=== PATIENT | male | born 1995 | race Hispanic/Latino ===

== ENCOUNTER 2022-08-20 21:47 | Emergency (ER) | payer SELFPAY ==
[2022-08-20 21:48] VITALS: BP 142/92; PULSE 112; RESP 19; TEMP 36.4; O2SAT 99; BMI 35.6
--- NOTE | 2022-08-20 22:38 | EKG12_ITS ---
Test Reason : DYSRHYTHMIA Blood Pressure : / mmHG Vent. Rate : 099 BPM Atrial Rate : 099 BPM P-R Int : 174 ms QRS Dur : 110 ms QT Int : 346 ms P-R-T Axes : 041 050 012 degrees QTc Int : 444 ms Normal sinus rhythm Nonspecific T wave abnormality Abnormal ECG Confirmed by BRUNO OSMAN, GREY ([id number]), research editor RADHA AYERS ([id number]) on 08/21/2022 10:06:39 AM Referred By: HANSEL Confirmed By:GREY CARR MD
--- NOTE | 2022-08-20 22:44 | EX.ED.DYSGE1 ---
HPI History of Present Illness Chief Complaint: Anxiety Informant: patient and friend Narrative Narrative: Patient is a 26-year-old male with no reported significant past medical history. He states he was at work and roughly 1 hour prior to arrival began feeling his heart was beating quickly and skipping beat. He states that his mother has a history of atrial fibrillation which required a pacemaker to be him concerned that he could be in A-fib or having a heart attack. Secondary to this he presents for evaluation. Patient states that associated with the palpitations there was no chest pain diaphoresis nausea vomiting or shortness of breath. He denies any recent travel surgery or history of DVT/PE. He denies any illicit drug use or excessive stimulant use. Patient states symptoms lasted for approximate 1 hour and have since resolved. PFSH PFSH Medical History no medical history no medical history Home Medications NK 08/20/22 [History Last Taken Unknown] Allergy/AdvReac Type Severity Reaction Status Date / Time No Known Allergies Allergy Verified 08/20/22 21:48 Social History Smoking Status: Never smoker ROS [facility] ED Constitutional Constitutional ED: Denies chills or fever(s) ENT ENT ED: Denies sore throat Cardiovascular Cardiovascular: Reports palpitations and racing heartbeat; Denies chest pain Respiratory/Chest Respiratory/Chest: Denies cough or dyspnea Gastrointestinal Gastrointestinal: Denies abdominal pain, diarrhea, nausea or vomiting Genitourinary Genitourinary ED: Denies dysuria Musculoskeletal Musculoskeletal: Denies myalgias Integumentary Denies rash Neurologic Neurologic: Denies headache(s) Hematologic/Lymphatic Hematologic/Lymphatic: Denies easy bleeding or easy bruising EXAM Physical Exam Const Vital Signs: 08/20/22 21:48 08/20/22 22:56 08/21/22 00:07 Temperature 97.6 F L Temperature Source Temporal Pulse Rate 112 H 95 78 Respiratory Rate 19 H 14 16 Blood Pressure 142/92 H 132/88 H Blood Pressure Mean 108 Pulse Ox 99 99 97 Oxygen Delivery Method Room Air Positive well nourished and well developed General Appearance ED: well developed HEENT HEENT Narrative: Normocephalic atraumatic Eyes PERRL and EOMs intact bilaterally General Eye ED: Negative for pale conjunctiva Neck supple and no JVD Resp normal respiratory effort and clear to auscultation bilaterally Cardio regular rate and regular rhythm Rate: other Other Details: Radial pulses are plus 2 out of 4 bilaterally are equal and symmetric GI normal to inspection, nondistended, normoactive bowel sounds, non-tender, non-distended and no masses Auscultation: normoactive bowel sounds Palpation: soft Extremity normal to inspection Extremity Narrative: No asymmetric edema no pitting edema negative Homans' sign bilaterally Neuro oriented x3, CN's II-XII intact bilaterally and no sensory deficits noted Sensorium / Orientation: alert Motor Exam: strength 5/5 throughout Psych mental status grossly normal Skin no rashes or lesions noted MDM MDM MDM Narrative Medical decision making narrative: Patient presented to the ER hypertensive and mildly tachycardic but did appear anxious in nature. He is low risk for cardiovascular disease but as he reported palpitations and mother does have a history of A-fib requiring pacemaker I did elect to perform a basic cardiac work-up. Differential diagnosis includes cardiac dysrhythmia such as A-fib a flutter or SVT versus thyroid disorder versus acute coronary syndrome versus anxiety. Blood work revealed no clinically significant changes. Patient reported spontaneous resolution of the palpitations and his heart rate reduced with IV fluids and time. He did not have pleuritic chest pain there is no hypoxia and he denies any recent travel surgery or history of DVT/PE so I felt no need for a CTA or D-dimer. At this time the patient is low risk for cardiovascular disease and as cardiac monitoring has not revealed any type of cardiac dysrhythmia and work-up is negative he is otherwise safe for discharge. History & Record Review Discussion w/independent historian: Patient and Friend Lab Data Attestation: I reviewed the patient's lab results. Labs: Laboratory Results - last 24 hr 08/20/22 08/20/22 22:56 22:56 WBC 10.0 RBC 5.03 Hgb 14.7 Hct 43.1 MCV 85.7 MCH 29.2 MCHC 34.1 RDW Std Deviation 35.4 RDW Coeff of Brayan 11.5 L Plt Count 247 MPV 10.6 Immature Gran % (Auto) 0.600 Neut % (Auto) 62.5 Lymph % (Auto) 24.2 [place] % (Auto) 8.4 Eos % (Auto) 3.9 Baso % (Auto) 0.4 Absolute Neuts (auto) 6.2 Absolute Lymphs (auto) 2.41 Nucleated RBC % 0 Sodium 140 Potassium 3.7 Chloride 107 Carbon Dioxide 27.0 Anion Gap 6 BUN 14 Creatinine 0.96 Estim Creat Clear Calc 137.95 Est GFR (MDRD) Af Amer 123 Est GFR (MDRD) Non-Af 102 BUN/Creatinine Ratio 14.6 Glucose 107 H Calcium 8.8 Magnesium 1.7 Troponin I High Sens 6 TSH 1.36 Discharge Plan Triage Chief Complaint: Anxiety ED Provider: Kael Coreas Dx/Rx/DC Orders Clinical Impression: Palpitations Instructions: ED Palpitations Prescriptions: No Action NK Stand Alone Forms: ED Work / School Excuse Primary Care Provider: Care Physician,No Primary Referrals: Karthik Stanton MD [Med Staff - Active Staff] - Care Physician,No Primary [Primary Care Provider] - Activity Restrictions/Additional Instructions: If symptoms persist follow-up with your family doctor to discuss need for Holter monitor or return to the ER if you have any further concerns Disposition Disposition: Home, Self Care Discharge Date/Time: 08/21/22 00:08
[2022-08-20] MEDS: 0.9% Normal Saline 1,000 ML 999 ML IV (22:55)
[2022-08-20 22:56] VITALS: PULSE 95; RESP 14; O2SAT 99
[2022-08-20 23:02] LABS: Absolute Lymphocyte Count 2.41 X10^3/uL (0.83-4.51); Absolute Neutrophil Count 6.2 X10^3/uL (2.0-7.7); Basophil# 0.04 X10^3/uL; Basophil% 0.4 % (0-1); Eosinophil# 0.39 X10^3/uL; Eosinophils% 3.9 % (0-5); Hematocrit 43.1 % (40-54); Hemoglobin 14.7 g/dL (13.0-16.5); Lymphocyte # 2.41 X10^3/ul (0.83-4.51); Lymphocyte % 24.2 % (19-41); Mean Corp Hgb Conc 34.1 g/dL (32-36); Mean Corpuscular Hgb 29.2 pg (27.0-32.0); Mean Corpuscular Volume 85.7 fL (80-94); Mean Platelet Vol. 10.6 fl (6.2-12.0); Monocyte# 0.84 X10^3/uL; Monocyte% 8.4 % (0-10); NRBC Flagged by Analyzer 0 % (0-5); Neutrophil # 6.22 X10^3/uL (2.7-7.7); Neutrophil % 62.5 % (47-70); Platelet Count 247 K/mm3 (150-450); RBC Distribution Width CV 11.5 % (11.6-14.6); RBC Distribution Width SD 35.4 fl (35.1-43.9); Red Blood Count 5.03 M/mm3 (4.6-6.2)
[2022-08-20 23:28] LABS: Anion Gap 6 (5-15); BUN 14 mg/dL (7-18); BUN/Creat Ratio 14.6 RATIO (10-20); Calcium,Total 8.8 mg/dL (8.5-10.1); Chloride 107 mmol/L (98-107); Creatinine, Serum 0.96 mg/dL (0.70-1.30); EST Glomerular Filtration Rate 102 mL/min (>60); Est Glom Filt Rate - Afr Amer 123 mL/min (>60); Estimated Creatinine Clearance 137.95 ml/min; Glucose 107 mg/dL (74-106); Magnesium 1.7 mg/dL (1.6-2.6); Potassium 3.7 mmol/L (3.5-5.1); Sodium Level 140 mmol/L (136-145); Thyroid Stim Hormone (TSH) 1.36 uIU/mL (0.358-3.74); Troponin-I HS 6 pg/mL (3.0-78.0)
[2022-08-21 00:07] VITALS: BP 132/88; PULSE 78; RESP 16; O2SAT 97
== END 2022-08-21 00:08 | disposition home or self-care (01) ==
PROVIDERS: Emergency Provider Emergency Medicine; Visit Provider Emergency Medicine
DX: R00.2 Palpitations (principal); F41.9 Anxiety disorder, unspecified
CPT/HCPCS: 80048; 83735; 84443; 84484; 85025; 93005; 96360; 99284; J7030

== ENCOUNTER 2024-10-27 20:41 | Emergency (ER) | payer SELFPAY ==
[2024-10-27 20:42] VITALS: BP 139/88; PULSE 100; RESP 18; TEMP 36.4; O2SAT 99; BMI 32.9
--- NOTE | 2024-10-27 22:16 | EKG12_ITS ---
Test Reason : GENERAL ILLNESS Blood Pressure : */* mmHG Vent. Rate : 85 BPM Atrial Rate : 85 BPM P-R Int : 174 ms QRS Dur : 92 ms QT Int : 366 ms P-R-T Axes : 36 42 10 degrees QTcB Int : 435 ms Normal sinus rhythm Normal ECG Confirmed by Michael Loco ([id number]), editor in chief SKYLAR FOY ([id number]) on 10/29/2024 6:41:42 AM Referred By: Confirmed By: Michael Loco
--- NOTE | 2024-10-27 22:16 | EDS_ITS ---
HPI History of Present Illness Chief Complaint: General Illness Informant: patient Onset/Context/Timing Onset: Today and Hours Current Severity: Gone Maximum Severity: Mild Narrative Narrative: 28-year-old male no Cee[employer] past medical or surgical history currently on no meds. He said he was cleaning tonight becoming got a hot flash. Currently says he feels fine. Denies any recent illness. Denies any nausea, vomiting or diarrhea. Denies fever or chills. Denies dysuria. No recent exposure to anyone's been ill. No recent weight change. Prior similar symptoms: No Recent Illness/Hospitalization: No PFSH PFSH Medical History no medical history no medical history Home Medications ?Medication ?Instructions ?Recorded ?Last Taken ?Type NK 08/20/22 Unknown History Allergy/AdvReac Type Severity Reaction Status Date / Time No Known Allergies Allergy Verified 10/27/24 20:42 Surgical History no surgical history no surgical history Social History Smoking Status: Never smoker ROS ROS ED ROS Narrative Denies recent illness. Constitutional Constitutional ED: Denies chills or fever(s) Eyes Eyes: Denies blurry vision ENT ENT ED: Denies ear pain Cardiovascular Cardiovascular: Denies chest pain Respiratory/Chest Respiratory/Chest: Denies cough or dyspnea Gastrointestinal Gastrointestinal: Denies abdominal pain Genitourinary Genitourinary ED: Denies dysuria or hematuria Musculoskeletal Musculoskeletal: Denies arthralgias or back pain Integumentary Denies abscess or Abrasions Neurologic Neurologic: Denies headache(s) Psychiatric Psychiatric: Denies anxiety or depression Endocrine Endocrinology: Denies cold intolerance Hematologic/Lymphatic Hematologic/Lymphatic: Reports none Allergic/Immunologic Allergic/Immunologic ED: Denies mouth swelling, tongue swelling or urticaria EXAM Physical Exam Narrative Exam Narrative: 28-year-old male vital signs stable afebrile. Temperature 97.6. Pulse ox 99% on room air. Clinically looks well when I enter the room he is talking on the phone. H EENT exam pupils round react to light. Moist mucous membranes. No head or neck trauma. Neck nontender no lymphadenopathy. No meningismus. Back nontender. Lungs clear to auscultation bilaterally. Heart regular rhythm rate about 100 no murmur. Chest wall and ribs nontender. Abdomen soft nontender. Moving all 4 extremities. Normal competitive shopper strength. Equal symmetrical radial pulses. Calves are nontender without edema or cords. Normal dorsi plantarflexion. Skin unremarkable. Neurologically is awake and alert. Answering questions following commands. Totally normal exam is benign. Const Vital Signs: 10/27/24 20:42 Temperature 97.6 F L Temperature Source Temporal Pulse Rate 100 Respiratory Rate 18 Blood Pressure 139/88 H Blood Pressure Mean 105 Pulse Ox 99 Oxygen Delivery Method Room Air Positive well nourished and well developed; Negative for cachectic, contractures or unkempt General Appearance ED: well developed and NAD; Negative for unkempt, cachectic, contractures, cyanotic, diaphoretic or pallor Nutritional Appearance: Negative for cachectic Eyes PERRL and EOMs intact bilaterally Neck no lymphadenopathy, supple and no JVD Chest Wall inspection of chest normal and palpation of chest normal Cardio regular rate, regular rhythm, S1 normal heart sound, S2 normal heart sound and no murmurs GI normal to inspection, nondistended, normoactive bowel sounds, non-tender, non- distended and no masses Auscultation: normoactive bowel sounds Palpation: soft; Negative for tender, guarding or rebound tenderness present Back/Spine no CVA tenderness General Back: Negative for CVA tenderness Cervical Spine: Negative for cervical spine tenderness Thoracic Spine / Upper Back: Negative for thoracic spinal tenderness or paraspinal muscle tenderness Lumbar Spine / Lower Back: Negative for lumbar spinal tenderness Extremity normal to inspection General Extremety ED: Negative for edema or tenderness General Extremity: Negative for edema Neuro oriented x3, CN's II-XII intact bilaterally and no sensory deficits noted Sensorium / Orientation: alert Motor Exam: strength 5/5 throughout; Negative for general weakness or strength abnormal Psych mental status grossly normal Appearance: Negative for unkempt Skin no rashes or lesions noted, no wounds and skin turgor normal General Skin Exam: elasticity normal; Negative for jaundice or pallor Lesions: No lesion noted Rashes: No rashes noted Trauma: Negative for abrasion Wounds: Negative for wounds noted MDM MDM MDM Narrative Medical decision making narrative: 28-year-old had a hot flash. patient has a normal exam. There is no signs of infection. His heart and lungs appear normal. His abdomen is nontender. Obtain an EKG but other [facility] lab work or imaging would be of benefit. Dental reassessing. Repeat exam patient is doing well at 10:45 PM. Again he speaking on the phone with a friend. Exam is unchanged benign. His EKG was unremarkable. He will be discharged home with outpatient follow-up as needed. History & Record Review Discussion w/independent historian: Patient Rhythm Strip Rhythm Strip: Sinus Rhythm Rate: 86 Ectopy: None EKG Initial EKG: Attestation: I personally reviewed and interpreted this EKG as follows: Interpretation: Sinus Rhythm and No Acute Injury Pattern Comments: Normal sinus rhythm rate 86 no acute signs of RI nor ischemia nor dysrhythmia. Discharge Plan Triage Chief Complaint: General Illness ED Provider: Tay Michelle Dx/Rx/DC Orders Clinical Impression: Hot flash in male Prescriptions: No Action NK Primary Care Provider: Care Physician,No Primary Referrals: Care Physician,No Primary [Primary Care Provider] - Annalisa Marquis Rebel, [employer] - As Needed Activity Restrictions/Additional Instructions: Your exam and EKG we did are normal. Follow-up with your local primary care physician as needed. Return for feeling worse. Off work tonight. Print Language: Arabic Disposition Disposition: Home, Self Care
[2024-10-27 23:02] VITALS: BP 144/71; PULSE 77; RESP 18; TEMP 36.9; O2SAT 100
== END 2024-10-27 23:03 | disposition home or self-care (01) ==
PROVIDERS: Emergency Provider Emergency Medicine; Visit Provider Emergency Medicine
DX: R68.89 Other general symptoms and signs (principal)
CPT/HCPCS: 93005; 99282